=== PATIENT | male | born 1985 | race African-American/Black ===

== ENCOUNTER 2021-04-22 19:24 | Emergency (ER) | payer OTHER ==
[~2021-04-22] VITALS: Ht 180.3 cm; Wt 86.0 kg
[2021-04-22 20:00] VITALS: BP 186/125
--- NOTE | 2021-04-22 20:40 | PHYS DOC ---
Past History Past Surgical History: No Surgical History Adult General Chief Complaint Chief Complaint: FINGER INJURY HPI HPI Patient is a 35-year-old male who presents with right third finger injury that happened while he was playing flag football just before coming in. Denies any other injuries. States pain is about a 6 out of 10, dull and achy in nature. States he did not take any medications. Review of Systems Review of Systems Review of systems otherwise unremarkable except noted in HPI Allergies Allergies Allergies Coded Allergies Type Severity Reaction Last Updated Verified No Known Drug Allergies 04/22/21 No Physical Exam Physical Exam Constitutional: Well developed, well nourished, no acute distress, non-toxic appearance. [] HENT: Normocephalic, atraumatic, Skin: Warm, dry, no erythema, no rash. [] Back: No tenderness, no CVA tenderness. [] Extremities: Deformity at DIP of third right finger. Neurovascular exam intact Neurologic: Alert and oriented X 3, no focal deficits noted. [] Psychologic: Affect normal, judgement normal, mood normal. [] Current Patient Data Vital Signs Vital Signs Date Time Temp Pulse Resp B/P (MAP) Pulse Ox O2 Delivery O2 Flow Rate FiO2 04/22/21 20:00 98.5 77 18 186/125 (145) 95 Room Air EKG EKG [] Radiology/Procedures Radiology/Procedures [] Heart Score C/O Chest Pain: No Risk Factors: Risk Factors: DM, Current or recent (<one month) smoker, HTN, HLP, family history of CAD, obesity. Risk Scores: Risk Factors: DM, Current or recent (<one month) smoker, HTN, HLP, family history of CAD, obesity. Course & Med Decision Making Course & Med Decision Making Patient is a 35-year-old male who presents with finger pain and dislocated third right finger Given ice pack, Tylenol and ibuprofen. Digital block with 0.5% bupivacaine, 3 mils. Reduce finger successfully. Patient tolerated well. Xi tape finger together. Gave symptom management at home. Advised to follow-up in the morning with primary care physician. Gave return precautions to the ED. Patient grateful, verbalized understanding agree with plan of discharge. Dragon Disclaimer Dragon Disclaimer This electronic medical record was generated, in whole or in part, using a voice recognition dictation system. Departure Departure: Impression: Primary Impression: Dislocated finger Disposition: HOME / SELF CARE / HOMELESS Condition: GOOD Referrals: PCP,UNKNOWN (PCP) PRATIBHA PALMER MD Patient Instructions: Finger Dislocation, RICE - Routine Care for Injuries Additional Instructions: Thank you for coming into the emergency department tonight and allowing us to take care of you. Please read the attached information. Please keep your fingers xi taped until you see your primary care physician and they clear you. Please begin ice, Tylenol and ibuprofen regimen. Please follow-up in the morning with your primary care physician. Please come back to the ED with new or concerning symptoms as discussed. CHARISSA CONLEY MD Apr 22, 2021 20:40
[2021-04-22] MEDS: IBUPROFEN 600 MG TABLET. PO ONE (20:52)
[2021-04-22] MEDS: oxyCODONE/APAP 5/325 1 TAB TABLET PO ONE (20:52)
--- NOTE | 2021-04-22 21:03 | RAD ---
EXAMINATION: XR HAND_RIGHT 3 VIEWS CLINICAL HISTORY: Right hand injury playing flag football TECHNIQUE: XR HAND_RIGHT 3 VIEWS Number of Images/Views: 3 COMPARISON: None FINDINGS: There appears to be dislocation of the third distal phalanx at the DIP joint with distraction and deg ree of dislocation suboptimally evaluated on available images. The distal phalanx. This level are and slightly radially dislocated on AP and oblique views but is relatively well aligned and volar-dorsal alignment on lateral view with loss of the normal joint space at the DIP joint. No evidence of acute fracture. Soft tissue swelling in the long finger. IMPRESSION: Dislocated right third DIP joint strongly suspected but suboptimally evaluated as described. Electronically signed by: Clemente Fisher DO (04/22/2021 9:00 PM) PADILLA
== END 2021-04-22 21:00 | disposition home or self-care (01) ==
LOC: ER 19:24
DX: S63.292A Dislocation of distal interphalangeal joint of right middle finger, initial encounter (principal); W21.01XA Struck by football, initial encounter; Y93.62 Activity, american flag or touch football; Y92.39 Other specified sports and athletic area as the place of occurrence of the external cause; Y99.8 Other external cause status
CPT/HCPCS: 73130; 99283-25

== ENCOUNTER 2021-05-12 16:53 | Emergency (ER) | payer OTHER ==
[~2021-05-12] VITALS: Ht 180.3 cm; Wt 87.4 kg
[2021-05-12] MEDS: cloNIDine HCL 0.1 MG TABLET PO ONE (17:20)
[2021-05-12] MEDS: LABETALOL 20 MG/4 ML DISP.SYRIN. IVP ONE (17:52)
--- NOTE | 2021-05-12 17:54 | PHYS DOC ---
Past History Past Surgical History: No Surgical History Additional Smoking Information: CIGARS Alcohol Use: Occasionally General Adult EDM: Chief Complaint: HYPERTENSION HPI: HPI: Patient is a [age] year old [sex] who presents with [] Review of Systems: Review of Systems: Constitutional: Denies fever or chills Eyes: Denies redness or eye pain HENT: Denies nasal congestion or sore throat Respiratory: Denies cough or shortness of breath Cardiovascular: Denies chest pain or palpitations GI: Denies abdominal pain, nausea, or vomiting : Denies dysuria or hematuria Musculoskeletal: Denies back pain or joint pain Integument: Denies rash or skin lesions Neurologic: Denies headache, focal weakness or sensory changes Complete systems were reviewed and found to be within normal limits, except as documented in this note. Current Medications: Current Meds: Current Medications Medications (Trade) Dose Ordered Sig/Temitope Start Time Stop Time Status Last Admin Dose Admin Clonidine HCl (Catapres) 0.1 mg 1X ONCE 05/12/21 17:15 05/12/21 17:16 DC 05/12/21 17:20 0.1 MG Labetalol HCl (Normodyne) 10 mg 1X ONCE 05/12/21 17:45 05/12/21 17:49 DC 05/12/21 17:52 10 MG Allergies: Allergies: Allergies Coded Allergies Type Severity Reaction Last Updated Verified iodine Allergy Unknown 05/12/21 Yes Physical Exam: PE: Constitutional: Well developed, well nourished, no acute distress, non-toxic appearance HENT: Normocephalic, atraumatic Eyes: PERRL, EOMI, conjunctiva normal, no discharge Neck: Normal range of motion, no tenderness, supple Lungs & Thorax: No respiratory distress, equal chest rise and fall Abdomen: Soft, no tenderness Skin: Warm, dry, no erythema, no rash Back: No tenderness, no CVA tenderness Extremities: No tenderness, ROM intact, no edema Neurologic: Alert and oriented X 3, normal motor function, normal sensory function, no focal deficits noted Psychologic: Affect normal, judgment normal Current Patient Data: Vital Signs: Vital Signs Date Time Temp Pulse Resp B/P (MAP) Pulse Ox O2 Delivery O2 Flow Rate FiO2 05/12/21 17:52 79 194/122 05/12/21 17:44 20 98 Room Air 05/12/21 17:00 98.8 EKG: EKG: @1755 NSR at 75bpm, NO ST elevation, QRS 90ms, QT/QTc 372/418ms Radiology/Procedures: Radiology/Procedures: [] Heart Score: C/O Chest Pain: N/A Course & Med Decision Making: Course & Med Decision Making Pertinent Labs and Imaging studies reviewed. (See chart for details) Patient stable for discharge with outpatient follow-up with PCP. Discussed findings and plan with patient, who acknowledges understanding and agreement. Dragon Disclaimer: Dragon Disclaimer: This electronic medical record was generated, in whole or in part, using a voice recognition dictation system. Departure Departure: Impression: Primary Impression: Hypertensive urgency Additional Impression: Hypomagnesemia Disposition: HOME / SELF CARE / HOMELESS Condition: STABLE Referrals: ALTAF KAUR DO (PCP) Patient Instructions: Hypertension, [id number]-[id number], Hypomagnesemia Additional Instructions: Please follow closely your doctor regarding need to be started on blood pressure medication jail. Please take prescribed medication for elevated pre ssures. Scripts Clonidine Hcl (CLONIDINE HCL) 0.1 Mg Tablet 1 TAB PO BID PRN for ELEVATED BP, SEE COMMENTS, #40 TAB Take for systolic (upper) blood pressure greater than 175 and/or diastolic (lower) blood pressure greater than 105. Prov: LUX SCHWARTZ DO 05/12/21 LUX SCHWARTZ DO May 12, 2021 17:54
[2021-05-12 18:07] LABS: BASO % 1 % (0-3); EOS % 1 % (0-3); HEMATOCRIT 40.5 % (39.0-53.0); LYMPH # 1.6 x10^3/uL (1.0-4.8); LYMPH % 39 % (24-48); MEAN CORPUSCULAR HEMOGLOBIN 30 pg (25-35); MEAN CORPUSCULAR HGB CONC 35 g/dL (31-37); MEAN CORPUSCULAR VOLUME 85 fL (79-100); MONO # 0.3 x10^3/uL (0.0-1.1); MONO % 8 % (0-9); NEUT % 52 % (31-73); PLATELET COUNT 269 x10^3/uL (140-400); RED BLOOD COUNT 4.74 x10^6/uL (4.30-5.70); RED CELL DISTRIBUTION WIDTH 12.8 % (11.5-14.5)
[2021-05-12 18:15] LABS: CREATININE 1.1 mg/dL (0.7-1.3); GFR 91.6; POTASSIUM 3.7 mmol/L (3.5-5.1)
[2021-05-12 18:21] LABS: ALBUMIN 4.2 g/dL (3.4-5.0); ALBUMIN/GLOBULIN RATIO 1.1 (1.0-1.7); MAGNESIUM 1.3 mg/dL (1.8-2.4); TOTAL BILIRUBIN 0.5 mg/dL (0.2-1.0)
[2021-05-12] MEDS ORDERED: CLON0.1T PO (18:42)
[2021-05-12] MEDS: MAGNESIUM CHLORIDE ER 64 MG TABLET.ER PO ONE (18:52)
[2021-05-12 19:00] VITALS: BP 181/111
--- NOTE | 2021-05-12 19:00 | EKG ---
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
== END 2021-05-12 19:00 | disposition home or self-care (01) ==
LOC: ER 16:53
DX: I16.0 Hypertensive urgency (principal); E83.42 Hypomagnesemia; F17.210 Nicotine dependence, cigarettes, uncomplicated; Z88.8 Allergy status to other drugs, medicaments and biological substances
CPT/HCPCS: 36415; 80053; 83735; 84484; 85025; 93005; 96374; 99285; J3490